=== PATIENT | male | born 1950 | race Caucasian/White ===

== ENCOUNTER → 2016-06-26 | Outpatient (CLI) | payer MEDICARE ==
[~2016-06-26] MED LIST: ACIDOPHILUS LA1 EACH PO; ALBUTEROL2.5 MG/NEB IN; ASPIRIN 81MG TA81 MG PO; FOLIC ACID 1MG T1 MG PO; GABAPENTIN300 MG PO; HYDROCHLOROTHIA25 M1 PO; LIPITOR80 MG PO; LORAZEPAM0.5 MG/TAB FT; LOSARTAN POTASS50 MG PO; METOPROLOL100 MG PO; NATURAL SAW PA160 MG PO; NORCO1 TAB PO; PHENYTOIN 100M100 MG PO; SYMBICORT1 AE1 IH; TUDORZA PR400 MCG/Ac IH; VITAMIN E 400400 IU PO
--- NOTE | 2016-06-27 15:57 | RADIOLOGY REPORT PS360 ---
CHEST(2 VIEWS-NOT PORTABLE) ORDERING PHYSICIAN : ASHWINI CORRAL PATIENT AGE: 66 years GENDER: Male INDICATION: Left lung mass and mediastinitis. Recent hospital stay and [place] where bronchoscopy was performed. HISTORY of COPD emphysema. On O2.LL LUNG MASS, MEDIASTINITIS PROCEDURE: CHEST(2 VIEWS-NOT PORTABLE) FINDINGS: No previous studies are available for comparison The peripheral lung castillo appear clear and well expanded. No focal pneumonia. Markings are slightly more evident the left infrahilar region but without definitive pneumonia. More likely mild chronic changes. The heart beth and mediastinal structures appear satisfactory on plain film. No pleural effusion. Chest wall appears intact chest wall and T-spine satisfactory IMPRESSION ----- Nothing definite acute at chest
--- NOTE | 2016-06-27 15:57 | RADIOLOGY REPORT PS360 ---
CHEST(2 VIEWS-NOT PORTABLE) ORDERING PHYSICIAN : ASHWINI CORRAL PATIENT AGE: 66 years GENDER: Male INDICATION: Left lung mass and mediastinitis. Recent hospital stay and [place] where bronchoscopy was performed. HISTORY of COPD emphysema. On O2.LL LUNG MASS, MEDIASTINITIS PROCEDURE: CHEST(2 VIEWS-NOT PORTABLE) FINDINGS: No previous studies are available for comparison The peripheral lung castillo appear clear and well expanded. No focal pneumonia. Markings are slightly more evident the left infrahilar region but without definitive pneumonia. More likely mild chronic changes. The heart beth and mediastinal structures appear satisfactory on plain film. No pleural effusion. Chest wall appears intact chest wall and T-spine satisfactory IMPRESSION ----- Nothing definite acute at chest
== END ==
LOC: RAD 16:50
DX: R22.2 Localized swelling, mass and lump, trunk (principal); J98.51 Mediastinitis